=== PATIENT | female | born 1955 | race Caucasian/White ===

== ENCOUNTER 2018-04-15 05:56 | Emergency (ER) | payer OTHER ==
[2018-04-15 06:30] LABS: #Eosinphils 0.2 thou/uL (0.0-0.7); #Lymphocytes 1.8 thou/uL (1.20-3.40); #Monocytes 0.5 thou/uL (0.11-0.59); #Neutrophils 3.4 thou/uL (1.40-6.50); %Basophils 0.2 % (0.0-1.0); %Eosinophils 3.6 % (0.0-10.0); %Lymphocytes 30.6 % (21.0-51.0); %Monocytes 7.7 % (0.0-10.0); %Neutrophils 57.8 % (42.0-75.0); Hemoglobin 15.4 g/dL (12.0-16.0); Mean Corpuscular HGB CONC 33.8 g/dL (32.0-36.0); Mean Corpuscular Hemoglobin 32.1 pg (27.0-31.0); Mean Platelet Volume 7.8 fL (7.4-10.4); Platelet Count 217 thou/uL (130-400); RBC Distribution Width 11.8 % (11.5-14.5); White Blood Cell (WBC) Count 5.8 thou/uL (4.8-10.8)
[2018-04-15] MEDS ORDERED: ISOVUE-370 76%-LOCM 1 ML ONE (06:34)
[2018-04-15 06:42] LABS: Bilirubin Negative (Negative); Blood, Urine Negative (Negative); Clarity CLOUDY (Clear); Glucose, Urine (Dipstick) Negative (Negative); Leukocyte Negative (Negative); Nitrite Negative (Negative); Protein, Urine (Dipstick) Negative (Neg-Trace); Specific Gravity, Urine 1.015 (1.002-1.036); Urobilinogen 0.2 mg/dL (0.2-1.0); pH, Urine 7.5 (5.0-9.0)
[2018-04-15 06:52] LABS: ALT (SGPT) 27 U/L (8-55); AST (SGOT) 11 U/L (5-34); Albumin 4.2 g/dL (3.4-4.8); Alkaline Phosphatase 94 U/L (40-150); Anion Gap 11 mmol/L (10-20); BUN (Urea Nitrogen) 13 mg/dL (9.8-20.1); Bilirubin, Total 0.5 mg/dL (0.2-1.2); Calc. Creatinine Clearance 0 mL/min (70-130); Calcium 9.9 mg/dL (7.8-10.44); Carbon Dioxide 23 mmol/L (23-31); Chloride 106 mmol/L (98-107); Estimated GFR-MDRD Greater than 90; Globulin 2.3 g/dL (2.4-3.5); Glucose 97 mg/dL (80-115); Lipase 24 U/L (8-78); Potassium 3.9 mmol/L (3.5-5.1); Protein, Total 6.5 g/dL (6.0-8.3); Sodium 136 mmol/L (136-145)
[2018-04-15] MEDS ORDERED: Morphine 4 MG/ML VIAL ONE (06:53)
[2018-04-15] MEDS ORDERED: Ondansetron ODT 4 MG TAB ONE (06:53)
--- NOTE | 2018-04-15 09:15 | CT ---
ABDOMEN CT WITH CONTRAST PELVIC CT WITH CONTRAST: COMPARISON: 10/11/15, 11/29/15. HISTORY: Abdominal pain. Intermittent left flank pain, starting Sunday. TECHNIQUE: Abdomen and pelvic CT performed with IV contrast. Enteric contrast was not administered. Coronal re formatted images are submitted for interpretation. FINDINGS: ABDOMEN CT: Dependent atelectatic changes. Heart size is normal. No pericardial fluid. The descending thoracic aorta and abdominal aorta have a normal caliber. No periaortic fat stranding. No gastrohepatic, retrocrural, or periportal lymphadenopathy. The gallbladder is unremarkable. Intra- and extrahepatic portal vein is patent. Enhancing involving the anterior segment of the right hepatic lobe measuring 0.6 cm x 0.8 cm correspo nds to a blush of contrast noted on previous CT likely represents a small flash-filling hemangioma. Hypodensity along the hepatic dome measures 0.8 x 0.9 cm, likely evidence of small cyst. The lesion is too small to adequately characterize. The spleen, pancreas, and adrenal glands are unremarkable. There are bilateral parapelvic cysts. Bilaterally, no hydronephrosis, nephrolithiasis, perinephric f at stranding. Bilateral ureters have a normal caliber. No hydroureter, periureteral fat stranding, or ureterolithiasis. There is exophytic cyst emanating from the left kidney measuring 2.0 x 2.1 cm. Presumed cyst has attenuation coefficient of 21 Hounsfield units. The previous study suggests small areas of possible associated enhancing septae. Followup CT in 6 months is recommended for continued surveillance. No mesenteric mass, lymphadenopathy, free air, or free fluid. Limited evaluation of the alimentary canal due to lack of oral contrast. Gastric mucosa, duodenum, a nd multiple normal-caliber small bowel loops are noted. Normal ileocecal junction. Normal-caliber c ontrast-filled appendix. Scattered fecal material in a nondistended, nondilated colon. There is nishant dence of diverticulosis, without evidence of diverticulitis. There is no lytic or blastic lesion in the osseous structures. There is evidence of previous lumbar fusion hardware placement. PELVIC CT: Uterus and adnexal structures are unremarkable. No pelvic mass, lymphadenopathy, free air, or free f luid. IMPRESSION: 1. Enlarging hypodensity in the left kidney not compatible with a simple cyst. Followup imaging in 6 months is recommended. 2. Bilateral parapelvic cysts. 3. Diverticulosis, without evidence of diverticulitis. 4. Normal-caliber appendix. CODE T POS: [facility]
== END 2018-04-15 09:19 | disposition home or self-care (01) ==
LOC: ERS 05:56
DX: N28.89 Other specified disorders of kidney and ureter (principal); I10 Essential (primary) hypertension; E03.9 Hypothyroidism, unspecified
CPT/HCPCS: 74177; 80053; 81003; 83690; 85025; 96361; 96374; J2270; Q0162

== ENCOUNTER 2018-08-12 13:00 | Outpatient (CLI) | payer OTHER | END 2018-08-12 13:01 | disposition home or self-care (01) | LOC: BICULT 13:00 | PROVIDERS: ATTEND Family Medicine | DX: M79.9 Soft tissue disorder, unspecified (principal) | CPT/HCPCS: 76999 ==

== ENCOUNTER 2019-01-08 10:05 | Outpatient (CLI) | payer OTHER ==
[2019-01-08 14:25] LABS: #Basophils 0.1 thou/uL (0.0-0.2); #Eosinphils 0.2 thou/uL (0.0-0.7); #Lymphocytes 1.6 thou/uL (1.20-3.40); #Monocytes 0.5 thou/uL (0.11-0.59); #Neutrophils 4.5 thou/uL (1.40-6.50); %Basophils 0.8 % (0.0-1.0); %Eosinophils 3.4 % (0.0-10.0); %Lymphocytes 23.6 % (21.0-51.0); %Monocytes 7.8 % (0.0-10.0); %Neutrophils 64.4 % (42.0-75.0); Hemoglobin 15.5 g/dL (12.0-16.0); Mean Corpuscular Hemoglobin 33.1 pg (27.0-31.0); Mean Platelet Volume 8.5 fL (7.4-10.4); Platelet Count 242 thou/uL (130-400); RBC Distribution Width 11.6 % (11.5-14.5); Red Blood Cell (RBC) Count 4.69 mill/uL (4.20-5.40); White Blood Cell (WBC) Count 6.9 thou/uL (4.8-10.8)
[2019-01-08 14:47] LABS: Anion Gap 12 mmol/L (10-20); BUN (Urea Nitrogen) 13 mg/dL (9.8-20.1); Calc. Creatinine Clearance 0 mL/min (70-130); Calcium 10.4 mg/dL (7.8-10.44); Carbon Dioxide 26 mmol/L (23-31); Chloride 108 mmol/L (98-107); Estimated GFR-MDRD 86; Glucose 86 mg/dL (80-115); Potassium 3.8 mmol/L (3.5-5.1); Sodium 142 mmol/L (136-145)
== END 2019-01-08 10:06 | disposition home or self-care (01) ==
LOC: LABBT 10:05
PROVIDERS: ATTEND Specialist
DX: Z01.818 Encounter for other preprocedural examination (principal); D17.1 Benign lipomatous neoplasm of skin and subcutaneous tissue of trunk
CPT/HCPCS: 80048; 85025; 93005; 93010

== ENCOUNTER 2019-01-10 11:50 | Day surgery (SDC) | payer OTHER ==
--- NOTE | 2019-01-08 11:50 | HP ---
HISTORY OF PRESENT ILLNESS: Odessa Rivas is a 63-year-old female, referred by Dr. Roney Dennis. I initially saw her in August 2018. She complained a left lower quadrant mass. It was felt to be a large lipoma. The patient at that time had about a 6-cm soft tissue mass, near the left superior anterior iliac spine. This was felt to be a lipoma and it was felt to be asymptomatic at times. Since that time, it has grown and become bothersome and she desires removal. The patient is 195 pounds, 64 inches, BMI 33. This soft tissue mass is smooth, mobile, but extends slightly posterior to the anterior superior iliac spine and crest. Plan is to excise this under anesthesia as an outpatient. MEDICATIONS: 1. Magnesium oxide as needed. 2. Multivitamins. 3. Levothyroxine 100 mcg daily. PAST MEDICAL HISTORY: Diverticulosis, IgA deficiency, hyperlipidemia, sleep apnea, on CPAP. Sleep study , hypovitaminosis D, scoliosis, chronic back pain. PAST SURGICAL HISTORY: Tonsillectomy and adenoidectomy in the past; back surgery; fusion, L1-L5, 2006; carpal tunnel syndrome, right, 2006; colonoscopy, Dr. Charles in 2005; back surgery, Dr. Porter, 2016; colonoscopy, Dr. Charles, August 2015. TOBACCO: None. ALCOHOL: Socially rarely. ALLERGIES: CIPRO. REVIEW OF SYSTEMS: A 10-point review of systems otherwise noncontributory. PHYSICAL EXAMINATION: VITAL SIGNS: Weight 195 pounds, height 64 inches, BMI 33, blood pressure 158/74, pulse 78, temperature 98 degrees. HEAD, EARS EYES, NOSE, AND THROAT: Unremarkable. LUNGS: Clear to auscultation. CARDIAC: Regular rate and rhythm without murmur or gallop. ABDOMEN: Soft, obese, nontender, 8 cm soft tissue mass, mobile, tender near the anterior superior iliac spine. This seems to slide underneath the iliac crest. It does not seem to be a hernia. It does not vary in size. EXTREMITIES: Unremarkable. NEUROLOGICAL: Intact. LYMPHATIC: No lymphadenopathy in neck, groins, or axilla. ASSESSMENT: Soft tissue tumor mass, left lower quadrant. PLAN: Excision under general anesthesia. Risks and benefits discussed, she consents. Job ID: [id number]
[2019-01-08 13:47] VITALS: BMI 34.5
[2019-01-10] MEDS ORDERED: Ketorolac Tromethamine 30 MG/ML VIAL ONE (13:17)
[2019-01-10] MEDS ORDERED: Lidocaine 2% w/Epinephrine 1:200K 20 ML VIAL ONE (14:51)
[2019-01-10] MEDS ORDERED: Bupivacaine HCl 0.5%/Epinephrine 1:200,000/PF 30 ml Vial ONE (14:51)
[2019-01-10] MEDS ORDERED: Bacitracin Zinc Ointment 30 gm TUBE ONE (14:51)
[2019-01-10] MEDS ORDERED: Lidocaine 1% (PF) 30 ML VIAL ONE (14:51)
[2019-01-10] MEDS ORDERED: Ondansetron PF 4 MG/2 ML Vial ONE (15:50)
[2019-01-10] MEDS ORDERED: Dexamethasone 20 MG/5 ML VIAL ONE (15:50)
[2019-01-10] MEDS ORDERED: Lidocaine 1% PF 5 ML VIAL ONE (15:50)
[2019-01-10] MEDS ORDERED: PHENYLEPHRINE-NS 100 MCG/ML 10 ML SYRINGE ONE (15:50)
[2019-01-10] MEDS ORDERED: PROPOFOL 200 MG/20 ML VIAL ONE (15:50)
[2019-01-10] MEDS ORDERED: Fentanyl 100 MCG/2 ML VIAL ONE (16:44)
--- NOTE | 2019-01-10 17:44 | OP ---
DATE OF PROCEDURE: 01/10/2019 PREOPERATIVE DIAGNOSIS: Large lipoma, left lower quadrant just outside anterior superior iliac spine. POSTOPERATIVE DIAGNOSIS: Large lipoma, left lower quadrant just outside anterior superior iliac spine. PROCEDURE PERFORMED: Excision of large lipoma, subcutaneous tissue down the fascia, 10 cm incision, layer closure, #10 Cornelius-Jorge drain. ANESTHESIA: General, local 0.5% Marcaine with epinephrine 30 mL mixed with 1% Xylocaine with epinephrine 30 mL, total volume mixture used. DESCRIPTION OF PROCEDURE: The patient was taken to the operating room under general anesthesia, abdomen prepared with ChloraPrep and draped in routine fashion. 10 cm incision was made in the left lower quadrant just outside the anterior superior iliac spine, iliac crest, excising a large lipoma from surrounding subcutaneous tissue underlying fascia. It was excised and submitted to Pathology. Good hemostasis obtained with cautery. #10 MATIAS drain secured with 2-0 nylon suture and Mastisol. Sterile dressing applied. Drain tailored to length and placed in the wound. Subcutaneous tissue was approximated with 3-0 Monocryl, skin with subdermal 4-0 Monocryl, and [place] glue applied. Job ID: [id number]
--- NOTE | 2019-01-16 05:37 | PQF ---
[facility] POST DISCHARGE CLINICAL DOCUMENTATION IMPROVEMENT CLARIFICATION FORM l Todays Date: 01/15/19 l Patients Name DELILAH LIU l l Admit Date 01/10/19 l Disch Date 01/10/19 Equipment Lead Name Princess Teresa Ocampo Email: @[email or web address] Cell: [phone] To be completed by Equipment Lead: Present Clinical Indicators - Signs / Symptoms Results and Location in Medical Record [ ] Documentation of: [ ] [ ] Documentation of: [ ] [ ] Documentation of: [ ] [ ] Documentation of: [ ] [ ] Risks [ ] [ ] [ ] Treatment [ ] Excision of lipoma Query for size of excised lipoma [ ] [ ] To be completed by Physician: Woody Ambriz The documentation in this patients record requires clarification to ensure coding compliance and accuracy. Check the appropriate box and include in your discharge summary. [ ] [ ] [ ] [ ] Please check this box if this does not apply to this patient [ ] Unable to determine [ ] Other diagnosis: Review the following information and exercise your independent professional judgment in responding to the clarification. Based upon the clinical findings, risk factors, and treatment, please clarify if you are treating one of the above probable or suspected diagnoses. Physician Signature: Date Time JENNIFERD
== END 2019-01-10 19:03 | disposition home or self-care (01) ==
LOC: SDC 11:50
PROVIDERS: ATTEND Specialist
PROC: 0JB80ZZ Excision of Abdomen Subcutaneous Tissue and Fascia, Open Approach (ICD-10-PCS; principal; 2019-01-10)
DX: D17.1 Benign lipomatous neoplasm of skin and subcutaneous tissue of trunk (principal); E78.5 Hyperlipidemia, unspecified; M41.9 Scoliosis, unspecified; G47.30 Sleep apnea, unspecified; Z99.89 Dependence on other enabling machines and devices; Z90.89 Acquired absence of other organs; Z98.1 Arthrodesis status; Z88.1 Allergy status to other antibiotic agents; Z91.018 Allergy to other foods; Z79.899 Other long term (current) drug therapy; Z98.890 Other specified postprocedural states
CPT/HCPCS: 88304; J0131; J0670; J1100; J1885; J2001; J2405; J2704; J3010

== ENCOUNTER 2019-02-03 08:59 | Outpatient (CLI) | payer OTHER ==
--- NOTE | 2019-02-03 11:36 | ULT ---
RIGHT UPPER QUADRANT ULTRASOUND: INDICATIONS: Right upper quadrant pain. COMPARISON: Reference made to 04/15/2018 CT of abdomen and pelvis. FINDINGS: There is a small, hyperechoic focus within the hepatic parenchyma, slightly greater than 1 cm, as dem onstrated. There was a small hyperdensity seen within the periphery of the right hepatic lobe on molina or CT exam. This area on CT is stable, dating back to September 2015. Finding, therefore, may relate to a small cavernous hemangioma. The gallbladder reveals no acute pathology. There is a nonshadowi ng, echogenic focus along the gallbladder wall, measuring 6 mm, favoring a polyp. Chaudhry sign is rep orted as negative. The common duct is normal at 5 mm. Incidental note of parapelvic cyst formation of the right kidney. IMPRESSION: 1. Probable gallbladder polyp, approximately 6 mm. Recommend a six-month follow-up ultrasound of th e right upper quadrant to confirm size stability. 2. Small hyperechoic focus of the liver, likely corresponding to a stable hyperdensity on CT dating back to September 2015, which therefore favors a benign process such as cavernous hemangioma. 3. Incidental note of parapelvic cyst formation of right kidney. POS: [facility]
== END 2019-02-03 09:00 | disposition home or self-care (01) ==
LOC: BICULT 08:59
PROVIDERS: ATTEND Family Medicine
DX: R10.11 Right upper quadrant pain (principal); K76.9 Liver disease, unspecified
CPT/HCPCS: 36415; 76705; 80053; 80061; 81001; 82306; 84439; 84443; 84480; 85025

== ENCOUNTER 2019-02-19 05:53 | Day surgery (SDC) | payer OTHER ==
[2019-02-18 15:53] VITALS: BMI 34.0
[2019-02-19] MEDS ORDERED: Scopolamine 1.5 mg/72 hour Patch ONE (06:30)
[2019-02-19] MEDS ORDERED: Ketorolac Tromethamine 30 MG/ML VIAL ONE (06:30)
[2019-02-19] MEDS ORDERED: Levofloxacin 500 mg/D5W 100 ml Premix Bag ONE (06:30)
[2019-02-19] MEDS ORDERED: Bupivacaine HCl 0.5%/Epinephrine 1:200,000/PF 30 ml Vial ONE (07:05)
[2019-02-19] MEDS ORDERED: Fentanyl 100 MCG/2 ML VIAL ONE ×3 (07:43→09:58)
[2019-02-19] MEDS ORDERED: Midazolam HCl 2 mg/2 ml Vial ONE (07:43)
--- NOTE | 2019-02-19 08:39 | HP ---
HISTORY OF PRESENT ILLNESS: Odessa Rivas is a 63-year-old female, status post excision of a large lipoma, left lower quadrant. After six weeks, this drain was removed. She has had an approximately 30 mL output, but after removal of the drain, it was not functioning at all. This wound is well healed and the drainage is serous and not infected in appearance. The patient has been having intermittent episodes of upper abdominal bloating and epigastric right upper quadrant pain with right flank radiation. She had a CAT scan at [facility] recently to follow up a left renal density. This revealed a density in the liver. She then underwent an ultrasound of the gallbladder on 02/03/2019, ordered by Dr. Roney Dennis revealing a 6 mm focused gallbladder favored polyp but could not be for sure that was not a stone. Her common duct was 5 mm. Recent comprehensive metabolic profile revealed normal liver function test. The patient reports intermittent bloating in the upper abdomen as stated above and right upper quadrant pain to back and flank radiation, right. We have discussed the possibility that this is not adherent gallstone, non-shadowing, and her symptoms are more biliary in nature, which they are typical of. I have recommended laparoscopic cholecystectomy. I have given her the options of observing this depending on how bad his bother her. She wants to talk to her and proceed with laparoscopic cholecystectomy to get rid of the intermittent pain that she is having. Risks of infection, bleeding, visceral and biliary injury discussed. She consents. She has had a colonoscopy in last 2 years and is normal. CAT scan at [facility] recently as discussed above revealing cyst liver and hemangiomas liver and cyst kidney, all benign. PAST MEDICAL HISTORY: Diverticulosis, obesity, IgA deficiency, ARMEN, scoliosis, chronic back pain. PAST SURGICAL HISTORY: Tonsillectomy, back surgery, carpal tunnel release, colonoscopy in the past, back surgery with Dr. Porter in 2017, colonoscopy 2015, Dr. Charles, recent excision of large lipomatous mass, left lower quadrant. ALLERGIES: CIPRO, MUSCLE ACHES. REVIEW OF SYSTEMS: Ten-point noncontributory. FAMILY HISTORY: Noncontributory. PHYSICAL EXAMINATION: VITAL SIGNS: 194 pounds, 63 inches, 153/77, 68, 99.3 degrees. HEAD, EYES, EARS, NOSE, AND THROAT: Unremarkable. LUNGS: Clear to auscultation. CARDIAC: Regular rate and rhythm without murmur or gallop. ABDOMEN: Soft, obese, and nontender. Drain removed from the left lower quadrant. EXTREMITIES: Unremarkable. No ankle edema. ASSESSMENT AND PLAN: Cholecystitis, cholelithiasis, symptoms consistent with biliary disease. We would recommend laparoscopic cholecystectomy. Risks of infection, bleeding, and visceral and biliary injury discussed, questions answered. Job ID: [id number]
--- NOTE | 2019-02-19 10:39 | OP ---
DATE OF PROCEDURE: 02/19/2019 PREOPERATIVE DIAGNOSES: Cholecystitis, cholelithiasis. POSTOPERATIVE DIAGNOSES: Cholecystitis, cholelithiasis. PROCEDURE PERFORMED: Laparoscopic video cholecystectomy. ANESTHESIA: General, local of 0.5% Marcaine with epinephrine 30 mL. DESCRIPTION OF PROCEDURE: The patient was taken to the operating room, where under general anesthesia, abdomen was prepared with ChloraPrep and draped in routine fashion. Local anesthetic was infiltrated in the skin and subcutaneous tissue at each port site. A vertical incision was made. Pneumoperitoneum to 15 mmHg was obtained with a Veress needle, replaced with a 5 port and video laparoscope inserted. A right subxiphoid incision was made and 11 port placed. A right subcostal incision was made in the midclavicular and anterior axillary lines and the 5 port was placed. Liver appeared to be normal. Fundus of the gallbladder was grasped at the cephalad. Omental adhesions were taken down from the body of the gallbladder using cautery. Infundibulum was grasped and retracted laterally. Cystic artery and duct dissected free. Critical view obtained. Cystic artery and duct double clipped proximally and divided. Gallbladder was dissected free from the liver bed obtaining good hemostasis prior to division of the final peritoneal attachments. Gallbladder and stones were removed and submitted to Pathology. Good hemostasis was obtained with cautery. Irrigant and pneumoperitoneum evacuated. All instruments removed and all skin incisions were approximated with interrupted subdermal 4-0 Monocryl and [place] glue applied. Job ID: [id number]
== END 2019-02-19 13:20 | disposition home or self-care (01) ==
LOC: SDC 05:53
PROVIDERS: ATTEND Specialist
PROC: 0FT44ZZ Resection of Gallbladder, Percutaneous Endoscopic Approach (ICD-10-PCS; principal; 2019-02-19)
DX: K81.1 Chronic cholecystitis (principal); E78.5 Hyperlipidemia, unspecified; M41.9 Scoliosis, unspecified; G47.33 Obstructive sleep apnea (adult) (pediatric); E66.9 Obesity, unspecified; Z68.34 Body mass index [BMI] 34.0-34.9, adult; Z90.89 Acquired absence of other organs; Z88.1 Allergy status to other antibiotic agents; Z91.018 Allergy to other foods; Z79.899 Other long term (current) drug therapy; Z98.890 Other specified postprocedural states
CPT/HCPCS: 88304; J0131; J0670; J1885; J1956; J2250; J3010

== ENCOUNTER 2020-06-10 11:30 | Emergency (ER) | payer OTHER ==
[2020-06-10] MEDS ORDERED: Ketorolac Tromethamine 30 MG/ML VIAL ONE (12:26)
[2020-06-10 12:41] LABS: #Eosinphils 0.2 thou/uL (0.0-0.7); #Monocytes 0.7 thou/uL (0.11-0.59); #Neutrophils 3.5 thou/uL (1.40-6.50); %Basophils 0.1 % (0.0-1.0); %Eosinophils 3.1 % (0.0-10.0); %Lymphocytes 18.8 % (21.0-51.0); %Monocytes 13.3 % (0.0-10.0); %Neutrophils 64.7 % (42.0-75.0); Hemoglobin 14.9 g/dL (12.0-16.0); Mean Corpuscular HGB CONC 35.2 g/dL (32.0-36.0); Mean Corpuscular Hemoglobin 33.9 pg (27.0-31.0); Mean Corpuscular Volume 96.2 fL (78.0-98.0); Mean Platelet Volume 8.5 fL (7.4-10.4); Platelet Count 219 thou/uL (130-400); RBC Distribution Width 11.3 % (11.5-14.5); White Blood Cell (WBC) Count 5.4 thou/uL (4.8-10.8)
--- NOTE | 2020-06-10 12:58 | RAD ---
XR Chest 1 View Portable HISTORY: COVID Positive COMPARISON: None FINDINGS: The heart size is normal. The lungs are well expanded without focal areas of consolidation, pneumothorax or pleural effusions. There are postop changes in the spine. IMPRESSION: No radiographic evidence of acute cardiopulmonary process. Groundglass opacities seen in viral pneumonias may be missed on plain radiographs. These would be bet ter evaluated on CT scan.
[2020-06-10 12:59] LABS: ALT (SGPT) 48 U/L (8-55); AST (SGOT) 21 U/L (5-34); Albumin 3.5 g/dL (3.4-4.8); Alkaline Phosphatase 85 U/L (40-110); Anion Gap 13 mmol/L (10-20); BUN (Urea Nitrogen) 11 mg/dL (9.8-20.1); Bilirubin, Total 0.4 mg/dL (0.2-1.2); Calc. Creatinine Clearance 0 mL/min (70-130); Calcium 9.5 mg/dL (7.8-10.44); Carbon Dioxide 24 mmol/L (23-31); Chloride 105 mmol/L (98-107); Estimated GFR-MDRD Greater than 90; Glucose 95 mg/dL (80-115); Potassium 4.3 mmol/L (3.5-5.1); Protein, Total 6.5 g/dL (6.0-8.3); Sodium 138 mmol/L (136-145)
[2020-06-10 14:14] LABS: Troponin I Less than 0.010 ng/mL (< 0.028)
== END 2020-06-10 15:16 | disposition home or self-care (01) ==
LOC: ERS 11:30
DX: U07.1 COVID-19 (principal); E03.9 Hypothyroidism, unspecified; Z79.899 Other long term (current) drug therapy
CPT/HCPCS: 71045; 80053; 84484; 85025; 93005; 96374; J1885

== ENCOUNTER 2024-06-10 12:39 | Outpatient (CLI) | payer MEDICARE | END 2024-06-10 12:40 | disposition home or self-care (01) | LOC: SCSMRI 12:39 | PROVIDERS: ATTEND Orthopaedic Surgery | DX: M47.22 Other spondylosis with radiculopathy, cervical region (principal); M47.813 Spondylosis without myelopathy or radiculopathy, cervicothoracic region | CPT/HCPCS: 72141 ==

== ENCOUNTER 2024-06-12 13:31 | Outpatient (CLI) | payer MEDICARE | END 2024-06-12 13:32 | disposition home or self-care (01) | LOC: BICMRI 13:31 | PROVIDERS: ATTEND Orthopaedic Surgery | DX: M54.6 Pain in thoracic spine (principal); M47.814 Spondylosis without myelopathy or radiculopathy, thoracic region; M48.04 Spinal stenosis, thoracic region; M51.24 Other intervertebral disc displacement, thoracic region | CPT/HCPCS: 72146 ==

== ENCOUNTER 2024-06-13 10:56 | Outpatient (CLI) | payer MEDICARE | END 2024-06-13 10:57 | disposition home or self-care (01) | LOC: BICMRI 10:56 | PROVIDERS: ATTEND Orthopaedic Surgery | DX: M47.26 Other spondylosis with radiculopathy, lumbar region (principal); M54.50 Low back pain, unspecified; M47.817 Spondylosis without myelopathy or radiculopathy, lumbosacral region; M48.07 Spinal stenosis, lumbosacral region | CPT/HCPCS: 72148 ==

== ENCOUNTER 2024-06-13 12:52 | Outpatient (CLI) | payer MEDICARE | END 2024-06-13 12:53 | disposition home or self-care (01) | LOC: RAD 12:52 | PROVIDERS: ATTEND Orthopaedic Surgery | DX: M47.26 Other spondylosis with radiculopathy, lumbar region (principal); M54.6 Pain in thoracic spine; M47.814 Spondylosis without myelopathy or radiculopathy, thoracic region; Z98.890 Other specified postprocedural states; M54.50 Low back pain, unspecified; M47.817 Spondylosis without myelopathy or radiculopathy, lumbosacral region; M48.07 Spinal stenosis, lumbosacral region | CPT/HCPCS: 72072; 72100; 72148 ==

== ENCOUNTER 2025-10-06 09:35 | Outpatient (CLI) | payer MEDICARE | END 2025-10-06 09:36 | disposition home or self-care (01) | LOC: BICMAMMO 09:35 | PROVIDERS: ATTEND Family Medicine | DX: Z78.0 Asymptomatic menopausal state (principal); M85.851 Other specified disorders of bone density and structure, right thigh; M85.852 Other specified disorders of bone density and structure, left thigh | CPT/HCPCS: 77080 ==